=== PATIENT | male | born 1935 | race Caucasian/White ===

== ENCOUNTER → 2023-11-04 10:01 | Outpatient (REF) | payer OTHER, SELFPAY ==
[2023-11-04 10:46] LABS: % Basophils 0.2 % (0-2); % Eosinophils 0.8 % (0-6); % Immature Granulocytes 0.5 % (0-0.5); % Lymphocytes 30.4 % (20.5-51.1); % Neutrophils 59.1 % (42.2-75.2); Absolute Eosinophils 0.1 10^3/uL (0-0.7); Absolute Lymphocytes 1.9 10^3/uL (1.2-3.4); Absolute Monocytes 0.6 10^3/uL (0.1-0.6); Absolute Neutrophils 3.7 10^3/uL (1.4-6.5); Hematocrit 35.6 % (39.0-52.0); Hemoglobin 11.9 g/dL (13.0-18.0); Mean Corp Hgb Conc. 33.4 g/dL (33.0-37.0); Mean Corpuscular Hgb 31.6 pg (27.0-31.0); Mean Corpuscular Volume 94.7 fL (80.0-94.0); Mean Platelet Volume 11.2 fL (7.4-10.4); Nucleated Red Blood Cells % 0 % (-); Platelet Count 147 10^3/uL (130-400); Red Blood Cell Count 3.76 10^6/uL (4.70-6.10); Red Cell Dist. Width 12.9 % (11.5-14.5); White Blood Cell Count 6.3 10^3/uL (4.8-10.8)
[2023-11-04 11:05] LABS: ALT (SGPT) 14 U/L (0-50); AST (SGOT) 16 U/L (17-59); Albumin 4.2 g/dl (3.5-5.0); Alkaline Phosphatase 71 U/L (38-126); Blood Urea Nitrogen 12 mg/dl (9-20); Calcium 10.4 mg/dl (8.4-10.2); Carbon Dioxide 30 mmol/L (22-30); Chloride 100 mmol/L (98-107); Glucose 100 mg/dl (70-99); HDL Cholesterol 51 mg/dl; LDL Cholesterol, Calculated 55 mg/dl; Potassium 4.3 mmol/L (3.5-5.1); Sodium 138 mmol/L (135-145); Total Bilirubin 2.1 mg/dl (0.2-1.3); Total Cholesterol 117 mg/dl (50-199); Total Protein 6.9 g/dl (6.3-8.2); Triglyceride 56 mg/dl (10-149); Very Low Density Lipoprotein 11 mg/dl (0-30); eGFR > 60.00
[2023-11-04 11:20] LABS: Free T4 1.41 ng/dl (0.78-2.19)
[2023-11-04 11:34] LABS: TSH < 0.02 uIU/ml (0.47-4.68)
== END ==
LOC: OLABWIL 10:01
PROVIDERS: ATTENDING PHYSICIAN Family Medicine
DX: N18.32 Chronic kidney disease, stage 3b (principal); E78.2 Mixed hyperlipidemia; I10 Essential (primary) hypertension; I87.2 Venous insufficiency (chronic) (peripheral); R79.89 Other specified abnormal findings of blood chemistry
CPT/HCPCS: 36415; 80053; 80061; 84439; 84443; 85025

== ENCOUNTER → 2024-02-29 12:26 | Outpatient (REF) | payer OTHER, SELFPAY ==
[2024-02-29 14:03] LABS: ALT (SGPT) 18 U/L (0-50); AST (SGOT) 20 U/L (17-59); Albumin 4.5 g/dl (3.5-5.0); Alkaline Phosphatase 76 U/L (38-126); Blood Urea Nitrogen 13 mg/dl (9-20); Calcium 10.3 mg/dl (8.4-10.2); Carbon Dioxide 27 mmol/L (22-30); Chloride 102 mmol/L (98-107); Glucose 93 mg/dl (70-99); Potassium 4.4 mmol/L (3.5-5.1); Sodium 136 mmol/L (135-145); Total Bilirubin 1.9 mg/dl (0.2-1.3); Total Protein 7.2 g/dl (6.3-8.2); eGFR > 60.00
[2024-02-29 14:37] LABS: Free T3 3.75 pg/ml (2.77-5.27)
[2024-02-29 14:51] LABS: TSH Reflex To Free T4 < 0.02 uIU/ml (0.47-4.68)
[2024-02-29 15:28] LABS: Free T4 1.35 ng/dl (0.78-2.19)
[2024-03-03 02:21] LABS: Thyroid Stim. Immunoglobulin <0.10 IU/L (<=0.54)
[2024-03-03 05:23] LABS: TSH Receptor Antibody <1.10 IU/L (<=1.75)
== END ==
LOC: OLABWIL 12:26
PROVIDERS: ATTENDING PHYSICIAN Internal Medicine Endocrinology, Diabetes & Metabolism
DX: E05.90 Thyrotoxicosis, unspecified without thyrotoxic crisis or storm (principal)
CPT/HCPCS: 36415; 80053; 83520; 84439; 84443; 84445; 84481

== ENCOUNTER 2024-09-10 10:20 | Inpatient (IN) | payer OTHER, SELFPAY ==
[2024-09-09 17:22] VITALS: BP 136/66
[2024-09-09 17:57] LABS: % Basophils 0.1 % (0-2); % Immature Granulocytes 0.5 % (0-0.5); % Lymphocytes 10.1 % (20.5-51.1); % Monocytes 8.5 % (1.7-9.3); % Neutrophils 80.8 % (42.2-75.2); Absolute Immature Granulocytes 0.1 10^3/uL (0-0.05); Absolute Lymphocytes 1.2 10^3/uL (1.2-3.4); Absolute Neutrophils 9.4 10^3/uL (1.4-6.5); Hematocrit 35.6 % (39.0-52.0); Hemoglobin 12.1 g/dL (13.0-18.0); Mean Corpuscular Hgb 31.6 pg (27.0-31.0); Nucleated Red Blood Cells % 0 % (-); Platelet Count 153 10^3/uL (130-400); Red Blood Cell Count 3.83 10^6/uL (4.70-6.10); Red Cell Dist. Width 12.8 % (11.5-14.5); White Blood Cell Count 11.7 10^3/uL (4.8-10.8)
[2024-09-09 18:23] LABS: ALT (SGPT) 36 U/L (0-50); AST (SGOT) 73 U/L (17-59); Albumin 4.2 g/dl (3.5-5.0); Alkaline Phosphatase 92 U/L (38-126); Blood Urea Nitrogen 28 mg/dl (9-20); Calcium 10.5 mg/dl (8.4-10.2); Carbon Dioxide 23 mmol/L (22-30); Chloride 98 mmol/L (98-107); Glucose 111 mg/dl (70-99); Potassium 4.2 mmol/L (3.5-5.1); Sodium 130 mmol/L (135-145); Total Bilirubin 3.5 mg/dl (0.2-1.3); Total Protein 6.7 g/dl (6.3-8.2); eGFR > 60.00
[2024-09-09 20:24] VITALS: BP 111/61
[2024-09-09 20:36] VITALS: BP 111/61
[2024-09-09 21:00] VITALS: BP 127/58
[2024-09-09 22:00] VITALS: BP 121/60
[2024-09-09 23:38] VITALS: BP 119/71
--- NOTE | 2024-09-09 23:50 | ED.GENMED ---
History of Present Illness
General
Chief Complaint: Weakness
Time Seen by Provider: 09/09/24 22:29
History of Present Illness
History of Present Illness:
81-year-old male with history of CHF, COPD, hypertension presenting to the emergency department for generalized weakness and concern for dehydration. Patient arrives from independent living. He had been constipated, so took a lot of laxatives.
Last night he was up all night because he had to have multiple bowel movements. Today, he had a fall with positive head strike and reported some pain in his back. Daughters were concerned about his hydration status, so brought him to the hospital
for further evaluation. On arrival, patient reports feeling generally weak. He denies any loss of consciousness from the fall. Denies any blood in the stool. Denies chest pain, difficulty breathing, cough, fever. Believes that he overdid it
with the laxatives, took several. Denies additional acute medical complaints
Past History
Past History
ED Past Medical History: GERD, HTN, Hypercholesterolemia and Other (BPH)
ED Past Surgical History: Orthopedic (R TKA)
Social History
Tobacco: Smoker
Personal:
Living: with family
Phy Exam
Physical Exam
Physical Exam:
General: Well-appearing, no clinical signs of dehydration, nontoxic and in no acute distress
HEENT: protecting airway
Head: Small abrasion to the scalp.
Neck: appears supple
CV: Normal heart rate, irregular irregular rhythm
Resp: No accessory muscle use, no increased work of breathing, lungs clear to auscultation bilaterally
Abd: Soft and non-distended, no tenderness to palpation
Extremities: No deformities, no swelling, no erythema. Small area of bruising at at the right posterior rib region of the thoracic back. No crepitus
Neuro: alert, no focal neurologic deficit
: deferred
Rectal: no skin breakdown
Psych: Normal affect
Skin: Intact
Course
Orders/Labs/Results
Orders:
Orders
09/09/24 17:29
Electrocardiogram (*1) Urgent
Reason for Study: Abdominal Pain
EKG- Treatment ONCE
09/09/24 17:42
Complete Blood Count/With Diff Urgent
Comprehensive Metabolic Panel Urgent
09/09/24 22:56
CT Head W/o Iv Contrast Urgent
Comment:
Reason For Exam: fall, headstrike
CR Ribs-right 3 Vw W/pa Chest* Urgent
Comment:
Reason For Exam: fall
Abnormal Lab Results
09/09/24
17:42
WBC 11.7 H 10^3/uL
(4.8-10.8)
RBC 3.83 L 10^6/uL
(4.70-6.10)
Hgb 12.1 L g/dL
(13.0-18.0)
Hct 35.6 L %
(39.0-52.0)
MCH 31.6 H pg
(27.0-31.0)
MPV 11.0 H fL
(7.4-10.4)
Abs Immat Gran (auto) 0.1 H 10^3/uL
(0-0.05)
Absolute Neuts (auto) 9.4 H 10^3/uL
(1.4-6.5)
Absolute Monos (auto) 1.0 H 10^3/uL
(0.1-0.6)
Neutrophils % 80.8 H %
(42.2-75.2)
Lymphocytes % 10.1 L %
(20.5-51.1)
Sodium 130 L mmol/L
(135-145)
BUN 28 H mg/dl
(9-20)
Glucose 111 H mg/dl
(70-99)
Calcium 10.5 H mg/dl
(8.4-10.2)
Total Bilirubin 3.5 H mg/dl
(0.2-1.3)
AST 73 H U/L
(17-59)
09/09/24 17:42
09/09/24 17:42
Vital Signs
Initial and Last Documented VS:
Initial Vital Signs
Temp Pulse Resp BP Pulse Ox
98.1 F 82 20 136/66 97
09/09/24 17:22 09/09/24 17:22 09/09/24 17:22 09/09/24 17:22 09/09/24 17:22
Last Documented Vital Signs
Temp Pulse Resp BP Pulse Ox
98.1 F 64 19 119/71 99
09/09/24 17:22 09/09/24 23:38 09/09/24 23:00 09/09/24 23:38 09/09/24 23:38
MDM/Problems Addressed
MDM/Problems Addressed:
89-year-old male with history of CHF, COPD, hypertension presenting for concern of dehydration and generalized weakness. Vital signs on arrival are normal.
On exam, patient is resting comfortably, no acute distress or discomfort. On my assessment, watched patient ambulate from the bathroom to the bed, seemed unsteady, requiring assistance. Patient lives in an independent living facility. Patient
arrives with daughters, expressed concern for patient's fatigue and weakness. Suspect volume depletion, took multiple Lasix yesterday due to constipation and has had several bouts of diarrhea since. IV fluids started. In addition, patient is a
fall risk, had a fall today secondary to his symptoms. Does arrive with evidence of abrasion to the scalp and bruising to the right side of the ribs. Will obtain CT brain and x-ray imaging of the ribs. Patient had laboratory analysis prior to my
assessment, labs are unremarkable with the exception of mild hyponatremia, consistent with dehydration. Incidentally, patient found to be in A-fib, which is new for him. He is currently rate controlled.
23:50 - CT brain is negative. X-ray of the ribs without sign of rib fracture. In discussion with family, feel patient warrants admission for PT/OT consultation. Family is concerned about going back to an independent facility given his condition.
Patient has been declining over the past several months after his passed. Will plan for admission for continued cardiac monitoring, cardiac consultation with new onset A-fib, PT/OT consultation, social work consultation
*EKG
Interpreted by ED Provider?: Yes
EKG Intrepretation Date: 09/09/24
EKG Intrepretation Time: 23:58
Interpretation: abnormal
Comparison EKG: changes noted (01/17/21)
Heart Rate: 75
Rate: normal
Rhythm: a-fib
[place]: normal axis
QRS Pattern: normal QRS
Ischemia: no ischemia
*Critical Care Note
Total Time (30-74mins, 75-104mins- exclusive of procedures): Not Applicable
ED Attending Note
-
Portions of this chart may have been created with voice recognition software.� Occasional wrong word or��sound alike� substitutions may have occurred due to the inherent limitations of voice recognition software.
Discharge Plan
Departure
Prescriptions:
No Action
fluoxetine [Prozac] 40 MG capsule
40 mg PO DAILY
cyanocobalamin (vitamin B-12) 1,000 MCG tablet
1,000 mcg PO DAILY
aspirin 81 MG tablet,delayed release (DR/EC)
81 mg PO DAILY
simvastatin 40 MG tablet
40 mg PO DAILY
calcium carbonate [Oyster Shell Calcium 500] 500 MG tablet
500 mg PO DAILY
metoprolol succinate 25 MG tablet extended release 24 hr
25 mg PO DAILY
finasteride 5 MG tablet
5 mg PO DAILY
cholecalciferol (vitamin D3) 1,000 UNITS tablet
1,000 units PO DAILY
multivitamin with folic acid [Tab-A-Enrique] 1 TABLET tablet
1 tab PO DAILY
docusate sodium 100 MG capsule
100 mg PO BIDPRN PRN (Reason: hard stool) Qty: 20 0RF
pantoprazole 40 mg Tablet,Delayed Release (Dr/Ec)
40 mg PO DAILY
Referrals:
Anibal Weems MD [Family Provider] -
Interventions
Interventions:
*Risk Screen - Suicide Last Done: 09/09/24 17:22
*General Assessment Last Done: 09/09/24 17:22
*Neglect/Abuse Screening Last Done: 09/09/24 17:22
ED- Fall Risk Assessment Last Done: 09/09/24 22:54
*ED COVID-19 Vaccine History Last Done: 09/09/24 22:20
ED- Cardiac Assessment Last Done: 09/09/24 22:20
ED-Musculoskeletal Assessment Last Done: 09/09/24 21:38
ED- Neurological Assessment Last Done: 09/09/24 20:57
ED- Pulmonary Assessment Last Done: 09/09/24 21:38
ED-Skin Assessment Last Done: 09/09/24 22:20
Discharge Date and Time
Print Language: BURKINAN
[2024-09-10] VITALS (12 sets, daily range): BP systolic 101–155; BP diastolic 45–82; PULSE 58–71; O2SAT 97; BMI 29.9
--- NOTE | 2024-09-10 01:39 | HPS.HSE ---
Family Physician
-
Family Physician: Anibal Weems
Chief Complaint
-
Weakness with a fall
History of Present Illness
This is an 89-year-old male with past medical history significant for hypertension, GERD, COPD, BPH, hyperlipidemia presents to the emergency department following a fall at her independent living.
Patient was very sleepy at the time I saw him and history mostly obtained from chart records.
Patient apparently had constipation and took multiple doses of laxatives. Jyothi developed diarrhea thereafter. He had watery bowel movements throughout the day. And then today patient was weak fell and did strike his head and right back. He has
some back pain. He had small abrasion to the scalp and bruising to the posterior right rib. While was in the emergency department was found to be in atrial fibrillation that was rate controlled.
Daughter was concerned about his hydration status. On arrival in the emergency department he denied any loss of consciousness. He denies any bloody stool with diarrhea. He had no chest pain palpitations lightheadedness or dizziness. Denies any
cough fevers or chills.
In the emergency department he was afebrile, blood pressure was 124/50 with a pulse of 60 and respiratory rate of 15. He was satting 98% on room air. ECG showed atrial fibrillation with a rate of [address] or T wave changes. CBC was
unremarkable. Electrolytes notable for a sodium of 130 normal BUN/creatinine. Total bilirubin was slightly elevated at 3.5 with a AST of 75. Head CT is negative for any acute bleeds over the intracranial process. X-ray is negative for
infiltrates or rib fracture.
Medical History
Past Medical History
Past Medical History: Reports GERD, HTN, Hypercholesterolemia and Other (BPH)
Past Surgical History: Reports Orthopedic (Right TKA)
Social History
Tobacco: Smoker
Alcohol: Occasional
Drug: None
Personal:
Living: With Family
Employment: Retired
Family History
Family History: Not pertinent
Allergies / Home Medications
Allergies reflects when Allergies were last updated in [facility].
Home Medications with original date entered in [facility]
Allergy/Medication List:
Allergies
Allergy/AdvReac Type Severity Reaction Status Date / Time
No Known Allergies Allergy Unverified 02/23/21 17:13
Home Medications
aspirin 81 mg tablet,delayed release 81 mg PO DAILY 12/29/14
calcium carbonate (Oyster Shell Calcium 500) 500 mg PO DAILY 12/29/14
cholecalciferol (vitamin D3) 25 mcg (1,000 unit) tablet 1,000 units PO DAILY 12/29/14
cyanocobalamin (vitamin B-12) 1,000 mcg tablet 1,000 mcg PO DAILY 12/29/14
finasteride 5 mg tablet 5 mg PO DAILY 12/29/14
fluoxetine 40 mg capsule (Prozac) 40 mg PO DAILY 12/29/14
metoprolol succinate 25 mg tablet,extended release 24 hr 25 mg PO DAILY 12/29/14
multivitamin with folic acid 400 mcg tablet (Tab-A-Enrique) 1 tab PO DAILY 12/29/14
simvastatin 40 mg tablet 40 mg PO DAILY 12/29/14
docusate sodium 100 mg capsule 100 mg PO BIDPRN PRN hard stool #20 caps 02/23/21
pantoprazole 40 mg tablet,delayed release 40 mg PO DAILY 09/09/24
Review of Systems
-
History Source: Patient
Constitutional: Reports No Symptoms
EENT: Reports No Symptoms
Respiratory: Reports No Symptoms
Cardiac: Reports No Symptoms
Abdomen/GI: Reports Diarrhea
: Reports No Symptoms
Musculoskeletal: Reports No Symptoms
Skin: Reports No Symptoms
Endocrine: Reports No Symptoms
Hematologic/Lymphatic: Reports No Symptoms
Psych: Reports No Symptoms
Physical Exam
Vital Signs
Vital Signs
Temp Pulse Resp BP Pulse Ox
98.1 F 59 14 124/64 98
09/09/24 17:22 09/10/24 01:30 09/10/24 01:30 09/10/24 01:00 09/10/24 01:30
Physical Exam
General: Well Developed, Well Nourished and Comfortable
HEENT: NormoCephalic, Anicteric, Moist mucous membranes and Atraumatic
Respiratory: Clear
Cardiac: S1/S2 and Irregular Rhythm
Breast: Deferred by me
GI: Soft, Non Tender and Non Distended
Rectal: Deferred by Provider
Genito-urinary: Deferred by me
Musculoskeletal: No Clubbing, No Cyanosis and No Edema
Skin: Warm
Neuro: Alert, Oriented (to person and place) and Nonfocal/grossly intact
Hematologic/Lymphatic: No Lymphadenopathy
Psych: Calm
Laboratory Results
-
09/09/24 17:42
09/09/24 17:42
Laboratory Results
Total Bilirubin 3.5 mg/dl (0.2-1.3) H 09/09/24 17:42
AST 73 U/L (17-59) H 09/09/24 17:42
ALT 36 U/L (0-50) 09/09/24 17:42
Alkaline Phosphatase 92 U/L (38-126) 09/09/24 17:42
Data Reviewed
-
Diagnostic Radiology: Image Personally Visualized and interpreted
CT Scan: Report Reviewed by me
Medical Tests (Nuc Med, Echo, EKG etc): Image Personally Visualized and interpreted
Lab Data: Labs Reviewed by me
Old Records: Reviewed
Impression/Plan
-
IMPRESSION:
89-year-old who presents to the emergency department following a fall at home. Fall was in the setting of weakness following 1 day of laxative induced diarrhea. Had mild hyponatremia otherwise labs are unremarkable.
Mild elevation in total bilirubin and AST. Is ECG incidentally showed rate controlled atrial fibrillation at a rate of 75. No prior history of A-fib. Troponin is negative. Ambulated in the emergency department but required assistance.
PLAN:
Paroxysmal atrial fibrillation - New onset and incidental finding.
- admit to telemetry obs
- chads2 > 2 (age, htn chf), starting eliquis
- continue metoprolol 25 as rate is well controlled
- echo in am
- cardiology consult
Weakness/fall - In setting of diarrhea from laxatives. Mild dehydration.
- s/p I vluids in ED
- continue gentle hydration w/ NS at 75
- check orthostatics
- PT evaluation
Hyponatremia - Mild, suspect secondary to above
- IV NS for now
DVT PPX - SCDs for now
Code status - Full Code
[2024-09-10] MEDS: NSS 1000 IV ×2 (03:51→18:11)
[2024-09-10 07:11] LABS: Hematocrit 36.6 % (39.0-52.0); Hemoglobin 12.5 g/dL (13.0-18.0); Mean Corp Hgb Conc. 34.2 g/dL (33.0-37.0); Mean Corpuscular Hgb 31.6 pg (27.0-31.0); Mean Corpuscular Volume 92.7 fL (80.0-94.0); Mean Platelet Volume 11.2 fL (7.4-10.4); Platelet Count 142 10^3/uL (130-400); Red Blood Cell Count 3.95 10^6/uL (4.70-6.10); Red Cell Dist. Width 12.8 % (11.5-14.5); White Blood Cell Count 9.6 10^3/uL (4.8-10.8)
[2024-09-10 07:26] LABS: Blood Urea Nitrogen 22 mg/dl (9-20); Calcium 9.9 mg/dl (8.4-10.2); Carbon Dioxide 26 mmol/L (22-30); Chloride 101 mmol/L (98-107); Estimated Creatinine Clearance 75 ml/min; Glucose 94 mg/dl (70-99); Potassium 3.6 mmol/L (3.5-5.1); Sodium 134 mmol/L (135-145); eGFR > 60.00
[2024-09-10] MEDS: PROZAC 40 MG PO (09:05)
[2024-09-10] MEDS: TOPROL XL 25 MG PO (09:05)
[2024-09-10] MEDS: ASPIR LOW (ENTERIC COATED) 81 MG PO (09:05)
[2024-09-10] MEDS: PROTONIX 40 MG PO (09:06)
[2024-09-10] MEDS: PROSCAR 5 MG PO (09:06)
[2024-09-10] MEDS: LIPITOR 40 MG PO (09:06)
[2024-09-10] MEDS: ELIQUIS 5 MG PO ×2 (09:06→20:09)
--- NOTE | 2024-09-10 10:35 | CM ---
Patient with nursing. Patient lives in [facility] and his PCP is Dr. Weems. Patient was OBS and is now changed to INP status per physician. CM will return to complete assessment. CM will continue to follow for discharge
planning needs.
Plan; home with VN vs SNF pending therapy assessment; medical treatment plan
--- NOTE | 2024-09-10 11:34 | W.PN.HOSP.TC ---
Today's Communication/Plan
-
echo
ivf - pt/ot, orthostatics prior to dc
cards consulted
ensure no bleed on ct head
Assessment / Plan
Assessment / Plan
Physical Exam
General: Well Developed, Well Nourished and Comfortable
HEENT: NormoCephalic, Anicteric, Moist mucous membranes and Atraumatic
Respiratory: Clear
Cardiac: S1/S2 and Irregular Rhythm
Breast: Deferred by me
GI: Soft, Non Tender and Non Distended
Rectal: Deferred by Provider
Genito-urinary: Deferred by me
Musculoskeletal: No Clubbing, No Cyanosis and No Edema
Skin: Warm
Neuro: Alert, Oriented (to person and place) and Nonfocal/grossly intact
Hematologic/Lymphatic: No Lymphadenopathy
Psych: Calm
89-year-old who presents to the emergency department following a fall at home. Fall was in the setting of weakness following 1 day of laxative induced diarrhea. Had mild hyponatremia otherwise labs are unremarkable.
Mild elevation in total bilirubin and AST. Is ECG incidentally showed rate controlled atrial fibrillation at a rate of 75. No prior history of A-fib. Troponin is negative. Ambulated in the emergency department but required assistance.
PLAN:
Paroxysmal atrial fibrillation - New onset and incidental finding.
- admit to telemetry obs
- chads2 > 2 (age, htn chf), starting eliquis
- continue metoprolol 25 as rate is well controlled
- echo in am
- cardiology consult
Weakness/fall - In setting of diarrhea from laxatives. Mild dehydration.
-improved
- IVF
-orthostatics prior to dc
-symptomatic control
-at [facility], wants to go back
Hyponatremia - Mild, suspect secondary to above
- IV NS for now
-improving
-monitor
#HTN
#HLD
-cont asa, statin, bb
DVT PPX - Eliquis
Code status - Full Code
Anticipated Discharge: Within 24 hours
Subjective/Interval History
-
Date of Service: September 10, 2024
no acute events, diarrhea improved
Objective Data
-
Labs:
Laboratory Results
09/10/24
06:22
WBC 9.6
Hgb 12.5 L
Hct 36.6 L
Plt Count 142
Sodium 134 L
Potassium 3.6
Chloride 101
Carbon Dioxide 26
BUN 22 H
Creatinine 0.7
Glucose 94
Calcium 9.9
Vital Signs:
Vital Signs
Temp Pulse Resp BP Pulse Ox
97.8 F 65 18 101/74 99
09/10/24 07:35 09/10/24 07:35 09/10/24 07:35 09/10/24 07:35 09/10/24 07:35
I&O
09/09/24 09/10/24 09/11/24
06:59 06:59 06:59
Intake Total 120 / 120
Balance 120 / 120
Review of Systems
-
History Source: Patient
All other systems: Not reviewed unless documented
Data Reviewed
-
CT Scan: Report Reviewed by me
Labs: Labs Reviewed by me
--- NOTE | 2024-09-10 16:28 | CON.CAR ---
Consultation
Consultation Request
Date/Time Consultation Requested: 09/10/22
Date/Time Consultation Performed: 09/10/22
Requesting Provider: Dr Hansen
Performing Provider: Dr Chester
Reason for Consultation: AF
Medical History
-
Chief Complaint: fall
History of Present Illness:
89-year-old gentleman with past medical history of heart failure with preserved ejection fraction, left anterior fascicular block, hypertension who was followed by Dr. Montalvo but has not seen cardiology since 2020 presents for evaluation at the
recommendation of his daughters given a fall yesterday. He reports it was a loss of balance going from the rug to the tiling, he has never fallen before, but his daughters wanted him to be checked out. He has no chest pain or palpitations. He was
noted to be in atrial fibrillation. Currently, he has no palpitations chest pain or shortness of breath. He denies any weakness. Of note, review of the chart shows that his daughters were concerned about his hydration status after using laxatives
for constipation.
Past Medical History
Past Medical History: CHF (Preserved EF), COPD, GERD and HTN
Social History
Tobacco: Former Smoker (Recently quit per his report)
Alcohol: None
Personal: (Recently)
Living: Assisted Living ([facility])
Family History
Family History: Reviewed & Not Pertinent
Allergies / Home Medications
Allergy/AdvReac Type Severity Reaction Status Date / Time
No Known Allergies Allergy Unverified 02/23/21 17:13
�Medication �Instructions �Recorded �Confirmed �Type
aspirin 81 mg tablet,delayed 81 mg PO DAILY 12/29/14 09/09/24 History
release
calcium carbonate (Oyster Shell 500 mg PO DAILY 12/29/14 09/09/24 History
Calcium 500)
cholecalciferol (vitamin D3) 25 1,000 units PO DAILY 12/29/14 09/09/24 History
mcg (1,000 unit) tablet
cyanocobalamin (vitamin B-12) 1,000 mcg PO DAILY 12/29/14 09/09/24 History
1,000 mcg tablet
finasteride 5 mg tablet 5 mg PO DAILY 12/29/14 09/09/24 History
fluoxetine 40 mg capsule (Prozac) 40 mg PO DAILY 12/29/14 09/09/24 History
metoprolol succinate 25 mg 25 mg PO DAILY 12/29/14 09/09/24 History
tablet,extended release 24 hr
multivitamin with folic acid 400 1 tab PO DAILY 12/29/14 09/09/24 History
mcg tablet (Tab-A-Enrique)
simvastatin 40 mg tablet 40 mg PO DAILY 12/29/14 09/09/24 History
docusate sodium 100 mg capsule 100 mg PO BIDPRN PRN hard stool 02/23/21 09/09/24 Rx
#20 caps
pantoprazole 40 mg tablet,delayed 40 mg PO DAILY 09/09/24 09/09/24 History
release
Review of Systems
-
All other systems: Negative unless noted
Physical Exam
Vital Signs
Temp Pulse Resp BP Pulse Ox
97.3 F 66 18 127/70 100
09/10/24 15:40 09/10/24 15:40 09/10/24 15:40 09/10/24 15:40 09/10/24 15:40
Lab Results
09/10/24 06:22
09/10/24 06:22
Physical Exam
General: Well Developed, Well Nourished, No Apparent Distress and Comfortable
HEENT: Normocephalic
Respiratory: Clear; Negative Wheezes, Crackles or Rhonchi
Cardiac: Irregular Rhythm; Negative Murmur, Rub or Peripheral Edema
GI: Soft and Non Tender
Neuro: AO x 3
Impression / Plan
-
89-year-old gentleman with a past medical history of heart failure with preserved EF, hypertension and hyperlipidemia lost to follow-up since 2020 presented with a fall and found to be in atrial fibrillation.
Atrial fibrillation: This is a new diagnosis. He has no sense of the rhythm. We discussed the mainstay of therapy being anticoagulation.
He is rate controlled with metoprolol 25 mg daily.
He has been started on Eliquis given his CHADS2 Vasc[place] of 4 (heart failure, hypertension, age).
Otherwise, we discussed pursuing yazidism of normal rhythm. We do not know how long he has been in it as he is asymptomatic.
Given his age and goals of care to avoid intensive procedures, we will proceed with rate control unless he has a new cardiomyopathy on echocardiogram.
Heart failure with preserved EF: He reports this was an issue years ago but has not been in the last several years. He follows primarily with his PCP no longer in the cardiology office.
-currently euvolemic, NYHA 1. Can revisit GDMT at OP if becomes symptomatic
Right bundle branch block: New on EKG, echocardiogram ordered
Hypertension: Chronic and controlled continue current medications
Hyperlipidemia: Chronic and controlled continue statin.
Overall I recommend that he reestablish cardiovascular care.
Data:
Echocardiogram 07/05/2015, LVEF 60% mild LVH. Trace aortic regurgitation. No change from prior.
Data Reviewed
-
EKG: Tracing Personally Visualized and interpreted (Rate controlled atrial fibrillation with right bundle branch block.), Discussed with Physician (Discussed with Dr. Hansen, will continue rate control unless cmy. Check echo continue eliquis. )
and Other
Radiology: Other
[2024-09-11] VITALS (7 sets, daily range): BP systolic 146–160; BP diastolic 52–91; PULSE 66–85; O2SAT 98–100
[2024-09-11] MEDS: NSS 1000 IV (06:31)
[2024-09-11 07:25] LABS: Hematocrit 35.5 % (39.0-52.0); Hemoglobin 12.2 g/dL (13.0-18.0); Mean Corp Hgb Conc. 34.4 g/dL (33.0-37.0); Mean Corpuscular Volume 93.2 fL (80.0-94.0); Mean Platelet Volume 11.1 fL (7.4-10.4); Platelet Count 131 10^3/uL (130-400); Red Blood Cell Count 3.81 10^6/uL (4.70-6.10); Red Cell Dist. Width 12.9 % (11.5-14.5); White Blood Cell Count 6.3 10^3/uL (4.8-10.8)
[2024-09-11 07:33] LABS: ALT (SGPT) 47 U/L (0-50); AST (SGOT) 53 U/L (17-59); Albumin 3.3 g/dl (3.5-5.0); Alkaline Phosphatase 80 U/L (38-126); Blood Urea Nitrogen 14 mg/dl (9-20); Calcium 9.3 mg/dl (8.4-10.2); Carbon Dioxide 27 mmol/L (22-30); Chloride 105 mmol/L (98-107); Estimated Creatinine Clearance 75 ml/min; Glucose 92 mg/dl (70-99); Potassium 3.6 mmol/L (3.5-5.1); Sodium 135 mmol/L (135-145); Total Bilirubin 2.2 mg/dl (0.2-1.3); Total Protein 5.8 g/dl (6.3-8.2); eGFR > 60.00
[2024-09-11] MEDS: TOPROL XL 25 MG PO (08:52)
[2024-09-11] MEDS: PROZAC 40 MG PO (08:53)
[2024-09-11] MEDS: PROTONIX 40 MG PO (08:53)
[2024-09-11] MEDS: ELIQUIS 5 MG PO ×2 (08:53→20:16)
[2024-09-11] MEDS: PROSCAR 5 MG PO (08:53)
[2024-09-11] MEDS: LIPITOR 40 MG PO (08:53)
[2024-09-11] MEDS: ASPIR LOW (ENTERIC COATED) 81 MG PO (08:53)
--- NOTE | 2024-09-11 09:44 | CM ---
Addendum entered by Leslie Rodrigez 09/11/24 10:29:
Liaison able to accept patient when auth approved. CM will start auth.
Original Note:
Patient seen at bedside. Patient daughter is Samina Leon from [facility]. CM sent referral to [facility] and spoke with liaison who indicated that she would investigate ability to accept. CM updated physician and CM will continue to follow for discharge planning
needs.
Plan; SNF
--- NOTE | 2024-09-11 10:14 | W.PN.CD ---
Today's Communication / Plan
-
Echo pending
cont metop and Eliquis
He can likely be d/c after echo; we will schedule f/u appt.
Impression / Plan
-
89-year-old gentleman with a past medical history of heart failure with preserved EF, hypertension and hyperlipidemia lost to follow-up since 2020 presented with a fall and found to be in atrial fibrillation.
Atrial fibrillation: rate control for now
- cont metop
- cont Eliquis given his CHADS2 Vascor of 4 (heart failure, hypertension, age).
Heart failure with preserved EF: He reports this was an issue years ago but has not been in the last several years. He follows primarily with his PCP no longer in the cardiology office.
-currently euvolemic, NYHA 1. Can revisit GDMT at OP if becomes symptomatic
Right bundle branch block: New on EKG, echocardiogram ordered
Hypertension: Chronic and controlled continue current medications
Hyperlipidemia: Chronic and controlled continue statin.
Data:
Echocardiogram 07/05/2015, LVEF 60% mild LVH. Trace aortic regurgitation. No change from prior.
Subjective: feeling well would like to leave
Physical Exam
Vital Signs/Labs
Vital Signs
Temp Pulse Resp BP Pulse Ox
98.3 F 88 16 149/76 96
09/11/24 07:30 09/11/24 08:52 09/11/24 07:30 09/11/24 08:52 09/11/24 07:30
09/10/24 09/11/24 09/12/24
06:59 06:59 06:59
Actual Weight 208 lb 3 oz
09/11/24 05:50
09/11/24 05:50
Physical Exam
Constitutional: No acute distress and Comfortable
EENT: Anicteric
Cardiovascular: Pedal edema is absent and Rhythm/rate is irregular
Respiratory: Respiratory effort normal and Lungs clear to auscul.
GI: Soft
Neuro/Psych: AO x 3
Data Reviewed
-
Date of Service: September 11, 2024
EKG: Tracing Personally Visualized and interpreted (af)
Echo: Tracing Personally Visualized and interpreted and Report Reviewed by me
Labs: Labs Reviewed by me
--- NOTE | 2024-09-11 14:47 | CM ---
Case initiated in [facility] for skilled rehab at [facility].
Pended reference #[id number]
clinicals to be faxed to [phone]
Plan: skilled rehab, await insurance auth
--- NOTE | 2024-09-11 15:06 | W.PN.HOSP.TC ---
Today's Communication/Plan
-
d/c planning for snf rehab
Assessment / Plan
Assessment / Plan
89-year-old who presents to the emergency department following a fall at home. Fall was in the setting of weakness following 1 day of laxative induced diarrhea. Had mild hyponatremia otherwise labs are unremarkable.
Mild elevation in total bilirubin and AST. Is ECG incidentally showed rate controlled atrial fibrillation at a rate of 75. No prior history of A-fib. Troponin is negative. Ambulated in the emergency department but required assistance.
Paroxysmal atrial fibrillation - New onset and incidental finding.
- chads2 > 2 (age, htn chf), starting eliquis
- continue metoprolol 25 as rate is well controlled
- Echocardiogram showing preserved ejection fraction. Moderate mitral regurgitation. Mild to moderate tricuspid regurgitation. Pulm artery pressure of 49 mmHg.
- cardiology cleared patient for discharge.
Chronic diastolic congestive heart failure
-Currently euvolemic, patient to follow-up with cardiology in office.
Weakness/fall
-Suspected with volume depletion from laxative induced diarrhea
-Monitor orthostatic vitals
-Pending [facility] rehab placement
Hyponatremia-resolved
-Resolved with IVF
#HTN
#HLD
-cont asa, statin, bb
DVT PPX - Eliquis
Code status - Full Code
Anticipated Discharge: Within 24 hours
Subjective/Interval History
-
Date of Service: September 11, 2024
Resting comfortably in bed
Denies any chest discomfort or shortness of breath
Objective Data
-
Labs:
Laboratory Results
09/11/24
05:50
WBC 6.3
Hgb 12.2 L
Hct 35.5 L
Plt Count 131
Sodium 135
Potassium 3.6
Chloride 105
Carbon Dioxide 27
BUN 14
Creatinine 0.7
Glucose 92
Calcium 9.3
Total Bilirubin 2.2 H
AST 53
ALT 47
Alkaline Phosphatase 80
Vital Signs:
Vital Signs
Temp Pulse Resp BP Pulse Ox
97.3 F 76 18 152/78 95
09/11/24 11:14 09/11/24 11:14 09/11/24 11:14 09/11/24 11:14 09/11/24 11:14
I&O
09/10/24 09/11/24 09/12/24
06:59 06:59 06:59
Intake Total 120 / 120 1380 / 1380
Balance 120 / 120 1380 / 1380
Review of Systems
-
Respiratory: Reports No Symptoms
Cardiac: Reports No Symptoms
Abdomen/GI: Reports No Symptoms
Physical Exam
-
General: No Apparent Distress and Comfortable
HEENT: Negative Oxygen
Respiratory: Clear to Auscultation
Cardiac: Regular Rhythm and S1/S2; Negative Murmur or Rub
GI: Soft, Nontender, Nondistended and Normal Bowel Sounds
Musculoskeletal: No Edema
Neuro: Awake, Alert, Oriented, No Motor Deficits and Nonfocal/Grossly Intact
Psych: Calm
--- NOTE | 2024-09-11 18:17 | PTCARENOTE ---
Per MD pride the pt to Med surg.
[2024-09-12 07:30] LABS: Glucose - Point of Care 84 mg/dl (70-99)
[2024-09-12 07:35] VITALS: BP 158/86
[2024-09-12] MEDS: LIPITOR 40 MG PO (09:15)
[2024-09-12] MEDS: PROTONIX 40 MG PO (09:15)
[2024-09-12] MEDS: TOPROL XL 25 MG PO (09:16)
[2024-09-12] MEDS: ELIQUIS 5 MG PO (09:16)
[2024-09-12] MEDS: PROSCAR 5 MG PO (09:16)
[2024-09-12] MEDS: ASPIR LOW (ENTERIC COATED) 81 MG PO (09:16)
[2024-09-12] MEDS: PROZAC 40 MG PO (09:16)
--- NOTE | 2024-09-12 09:31 | W.PN.HOSP.TC ---
Today's Communication/Plan
-
D/c planning for snf rehab
medically clear
Assessment / Plan
Assessment / Plan
89-year-old who presents to the emergency department following a fall at home. Fall was in the setting of weakness following 1 day of laxative induced diarrhea. Had mild hyponatremia otherwise labs are unremarkable.
Mild elevation in total bilirubin and AST. Is ECG incidentally showed rate controlled atrial fibrillation at a rate of 75. No prior history of A-fib. Troponin is negative. Ambulated in the emergency department but required assistance.
Paroxysmal atrial fibrillation - New onset and incidental finding.
- chads2 > 2 (age, htn chf), starting eliquis
- continue metoprolol 25 as rate is well controlled
- Echocardiogram showing preserved ejection fraction. Moderate mitral regurgitation. Mild to moderate tricuspid regurgitation. Pulm artery pressure of 49 mmHg.
- cardiology cleared patient for discharge. to be discharged on eliquis , ASA discontinued .Continue toprol xl 25mg/d
- f/u with cardiology in office next month
Chronic diastolic congestive heart failure
-Currently euvolemic, patient to follow-up with cardiology in office.
Weakness/fall
-Suspected with volume depletion from laxative induced diarrhea
-Monitor orthostatic vitals
-Pending [facility] rehab placement
Hyponatremia-resolved
-Resolved with IVF
#HTN
#HLD
-cont asa, statin, bb
DVT PPX - Eliquis
Code status - Full Code
More than 30 minutes spent in discharge including
Final examination of the patient
Summarizing hospital stay
Instructions for continuing care to all relevant caregivers
Preparation of discharge records, prescriptions, and referral forms
Total time spent (in minutes): 38 mins
Anticipated Discharge: Today
Subjective/Interval History
-
Date of Service: September 12, 2024
no issues overnight
Objective Data
-
Vital Signs:
Vital Signs
Temp Pulse Resp BP Pulse Ox
97.9 F 100 20 158/86 98
09/12/24 07:35 09/12/24 09:16 09/12/24 07:35 09/12/24 09:16 09/12/24 07:35
I&O
09/11/24 09/12/24 09/13/24
06:59 06:59 06:59
Intake Total 1380 / 1380 600 / 600 120 / 120
Balance 1380 / 1380 600 / 600 120 / 120
Review of Systems
-
Respiratory: Reports No Symptoms
Cardiac: Reports No Symptoms
Abdomen/GI: Reports No Symptoms
Physical Exam
-
General: No Apparent Distress and Comfortable
HEENT: Negative Oxygen
Respiratory: Clear to Auscultation
Cardiac: S1/S2 and Irregular Rhythm; Negative Murmur, Rub or Tachycardic
GI: Soft, Nontender and Nondistended
Musculoskeletal: No Edema
Neuro: Awake, Alert, Oriented, No Motor Deficits and Nonfocal/Grossly Intact
Psych: Calm
--- NOTE | 2024-09-12 13:33 | CM ---
Availity for skilled rehab at [facility] started Pended reference #[id number].
Avavility checked x 2 still pending.
Spoke with Patricia at [facility] ready after auth
[facility]
report [phone]
fax [phone]
PLAN To [facility] after auth obtained
[2024-09-12 15:24] VITALS: BP 173/87
--- NOTE | 2024-09-12 15:33 | CM ---
Addendum entered by Gayatri Dewey RN 09/12/24 15:42:
Donnie Hidalgo notified of pt s auth number as below. Spoke with Jody gonzalez and pt [phone]. Family happy.Jody will transport pt to [facility].
MD DOCKERY aware.
Gwen
report [phone]
fax [phone]
PLAN To [facility]
Original Note:
TC from Dona/Gildardo
Approved skilled rehab
Auth# [id number]
start date 09/12/24, NRD 09/19/24
Updates to Dona at P# [phone] or fax# [phone]
--- NOTE | 2024-09-12 15:55 | W.DCSUMMARY ---
Discharge Summary
Discharge Data
Date of Admission: 09/10/24
Date of Discharge: 09/12/24
-
Pending Results: No
Hospital Course
Discharging Physician : Dr Warren Ibanez
Disposition : To home
Primary care physician : Dr Anibal Weems
Principal Discharge diagnosis :
Paroxysmal atrial fibrillation
Hypovolemic hyponatremia
Laxative induced diarrhea
Generalized weakness/fall
Chronic Discharge diagnosis :
Essential hypertension
Hyperlipidemia
Chronic diastolic congestive heart failure
Hospital Course :
Patient is 89-year-old male with above-mentioned past medical history came to ER after having mechanical fall at independent living. Patient was apparently dealing with constipation and took multiple doses of laxatives resulting in diarrhea.
Patient was suspected to be volume depleted causing resultant fall. Was brought into ER for further evaluation. Patient was noted to having mild hyponatremia and felt to be hypovolemic in nature, this resolved with IV fluid. patient incidentally
was noted to be in rate controlled A-fib which is a new finding for patient. Cardiology was involved in care who recommended for patient to be switched to Eliquis for anticoagulation with patient increased CHADS2 score. Echocardiogram showing
preserved ejection fraction with moderate MR/TR. Cardiology recommended for patient to follow-up in office within few weeks for further management of A-fib.
PT evaluated and patient was appropriate for rehab, patient was discharged to [facility] rehab after insurance approval.
Important imaging findings :
None
Procedure findings :
None
Discharge Plan
-
Patient Disposition: Half-Way/SNF
Discharge Diagnosis/Procedures: Afib - new diagnosis
Condition: Fair
Diet: 2 Gram Sodium
Activity: As tolerated
Driving Restrictions: No driving
Bathing Restrictions: OK to Shower
Referrals:
Stephanie Prado CRNP [Specified Professional Personl] - 10/02/24 1:00 pm
Anibal Weems MD [Family Provider] - in one week
Prescriptions:
New
Eliquis 5 mg Tablet
5 mg PO BID Qty: 60 2RF
Continued
fluoxetine [Prozac] 40 MG capsule
40 mg PO DAILY
cyanocobalamin (vitamin B-12) 1,000 MCG tablet
1,000 mcg PO DAILY
simvastatin 40 MG tablet
40 mg PO DAILY
calcium carbonate [Oyster Shell Calcium 500] 500 MG tablet
500 mg PO DAILY
metoprolol succinate 25 MG tablet extended release 24 hr
25 mg PO DAILY
finasteride 5 MG tablet
5 mg PO DAILY
cholecalciferol (vitamin D3) 1,000 UNITS tablet
1,000 units PO DAILY
multivitamin with folic acid [Tab-A-Enrique] 1 TABLET tablet
1 tab PO DAILY
docusate sodium 100 MG capsule
100 mg PO BIDPRN PRN (Reason: hard stool) Qty: 20 0RF
pantoprazole 40 mg Tablet,Delayed Release (Dr/Ec)
40 mg PO DAILY
Discontinued
aspirin 81 MG tablet,delayed release (DR/EC)
81 mg PO DAILY
Discharge Orders:
Discharge Patient (As Directed); Ordered 09/12/24
Ordered By: Warren Ibanez
Discharge Date and Time
Print Language: TRINIDADIAN
== END 2024-09-12 17:28 | DRG 394 ==
LOC: 4 EAST ACU 10:20
PROVIDERS: Emergency Medicine; Internal Medicine; ADMITTING PHYSICIAN Internal Medicine; ATTENDING PHYSICIAN Hospitalist; CONSULT PHYSICIAN Internal Medicine Cardiovascular Disease; EMERGENCY PHYSICIAN Student in an Organized Health Care Education/Training Program; FAMILY PHYSICIAN Internal Medicine Geriatric Medicine
DX: K52.1 Toxic gastroenteritis and colitis (principal); E87.1 Hypo-osmolality and hyponatremia; I50.32 Chronic diastolic (congestive) heart failure; T47.4X5A Adverse effect of other laxatives, initial encounter; E86.0 Dehydration; I48.0 Paroxysmal atrial fibrillation; S00.01XA Abrasion of scalp, initial encounter; S20.20XA Contusion of thorax, unspecified, initial encounter; E78.00 Pure hypercholesterolemia, unspecified; K21.9 Gastro-esophageal reflux disease without esophagitis; J44.9 Chronic obstructive pulmonary disease, unspecified; N40.0 Benign prostatic hyperplasia without lower urinary tract symptoms; I45.10 Unspecified right bundle-branch block; I11.0 Hypertensive heart disease with heart failure; E86.1 Hypovolemia; Z87.891 Personal history of nicotine dependence; Z96.651 Presence of right artificial knee joint; Z79.82 Long term (current) use of aspirin; Z79.899 Other long term (current) drug therapy; W01.10XA Fall on same level from slipping, tripping and stumbling with subsequent striking against unspecified object, initial encounter
CPT/HCPCS: 70450; 71101; 80048; 80053; 82962; 85025; 85027; 87070; 93005; 93306; 97116; 97163; 97166; 99285

== ENCOUNTER → 2024-09-14 11:36 | Outpatient (REF) | payer OTHER, SELFPAY ==
[2024-09-14 12:53] LABS: Hematocrit 39.5 % (39.0-52.0); Hemoglobin 12.9 g/dL (13.0-18.0); Mean Corp Hgb Conc. 32.7 g/dL (33.0-37.0); Mean Corpuscular Hgb 31.4 pg (27.0-31.0); Mean Corpuscular Volume 96.1 fL (80.0-94.0); Mean Platelet Volume 11.1 fL (7.4-10.4); Platelet Count 152 10^3/uL (130-400); Red Blood Cell Count 4.11 10^6/uL (4.70-6.10); White Blood Cell Count 6.1 10^3/uL (4.8-10.8)
[2024-09-14 13:12] LABS: Blood Urea Nitrogen 15 mg/dl (9-20); Carbon Dioxide 31 mmol/L (22-30); Chloride 97 mmol/L (98-107); Glucose 101 mg/dl (70-99); Magnesium 1.9 mg/dl (1.6-2.3); Potassium 4.1 mmol/L (3.5-5.1); Sodium 136 mmol/L (135-145); eGFR > 60.00
== END ==
LOC: OLABN 11:36
PROVIDERS: ATTENDING PHYSICIAN Student in an Organized Health Care Education/Training Program
DX: I10 Essential (primary) hypertension (principal)
CPT/HCPCS: 36415; 80048; 83735; 85027

== ENCOUNTER → 2024-10-17 13:12 | Outpatient (REF) | payer OTHER, SELFPAY ==
[2024-10-17 14:20] LABS: ALT (SGPT) 19 U/L (0-50); AST (SGOT) 17 U/L (17-59); Albumin 3.8 g/dl (3.5-5.0); Alkaline Phosphatase 74 U/L (38-126); Blood Urea Nitrogen 9 mg/dl (9-20); Calcium 10.2 mg/dl (8.4-10.2); Carbon Dioxide 26 mmol/L (22-30); Chloride 104 mmol/L (98-107); Glucose 94 mg/dl (70-99); Potassium 3.8 mmol/L (3.5-5.1); Sodium 137 mmol/L (135-145); Total Bilirubin 1.6 mg/dl (0.2-1.3); eGFR > 60.00
[2024-10-17 14:31] LABS: % Basophils 0.2 % (0-2); % Eosinophils 1.1 % (0-6); % Immature Granulocytes 0.4 % (0-0.5); % Lymphocytes 38.3 % (20.5-51.1); % Monocytes 8.5 % (1.7-9.3); % Neutrophils 51.5 % (42.2-75.2); Absolute Eosinophils 0.1 10^3/uL (0-0.7); Absolute Lymphocytes 1.8 10^3/uL (1.2-3.4); Absolute Monocytes 0.4 10^3/uL (0.1-0.6); Absolute Neutrophils 2.4 10^3/uL (1.4-6.5); Hematocrit 35.2 % (39.0-52.0); Hemoglobin 11.3 g/dL (13.0-18.0); Mean Corp Hgb Conc. 32.1 g/dL (33.0-37.0); Mean Corpuscular Hgb 31.2 pg (27.0-31.0); Mean Corpuscular Volume 97.2 fL (80.0-94.0); Mean Platelet Volume 11.6 fL (7.4-10.4); Nucleated Red Blood Cells % 0 % (-); Platelet Count 133 10^3/uL (130-400); Red Blood Cell Count 3.62 10^6/uL (4.70-6.10); Red Cell Dist. Width 13.3 % (11.5-14.5); White Blood Cell Count 4.6 10^3/uL (4.8-10.8)
[2024-10-18 10:57] LABS: Iron 62 ug/dl (49-181)
[2024-10-18 11:06] LABS: Percent Saturation 22 % (20-50); Total Iron Binding Capacity 279 ug/dl (261-462)
[2024-10-18 11:56] LABS: Ferritin 68.7 ng/ml (17.9-464.0)
== END ==
LOC: OLABWPC 13:12
PROVIDERS: ATTENDING PHYSICIAN Family Medicine
DX: I10 Essential (primary) hypertension (principal); D68.59 Other primary thrombophilia
CPT/HCPCS: 36415; 80053; 82728; 83540; 83550; 85025

== ENCOUNTER → 2024-10-27 10:26 | Outpatient (REF) | payer OTHER, SELFPAY ==
[2024-10-27 11:40] LABS: ALT (SGPT) 14 U/L (0-50); AST (SGOT) 14 U/L (17-59); Albumin 3.5 g/dl (3.5-5.0); Alkaline Phosphatase 70 U/L (38-126); Blood Urea Nitrogen 7 mg/dl (9-20); Calcium 10.2 mg/dl (8.4-10.2); Carbon Dioxide 29 mmol/L (22-30); Chloride 103 mmol/L (98-107); Glucose 95 mg/dl (70-99); Sodium 139 mmol/L (135-145); Total Bilirubin 1.5 mg/dl (0.2-1.3); Total Protein 5.9 g/dl (6.3-8.2); eGFR > 60.00
[2024-10-27 11:49] LABS: % Basophils 0.2 % (0-2); % Eosinophils 0.8 % (0-6); % Immature Granulocytes 0.4 % (0-0.5); % Lymphocytes 41.5 % (20.5-51.1); % Monocytes 10.5 % (1.7-9.3); % Neutrophils 46.6 % (42.2-75.2); Absolute Monocytes 0.5 10^3/uL (0.1-0.6); Absolute Neutrophils 2.3 10^3/uL (1.4-6.5); Hematocrit 34.3 % (39.0-52.0); Hemoglobin 11.4 g/dL (13.0-18.0); Mean Corp Hgb Conc. 33.2 g/dL (33.0-37.0); Mean Corpuscular Hgb 31.9 pg (27.0-31.0); Mean Corpuscular Volume 96.1 fL (80.0-94.0); Mean Platelet Volume 11.2 fL (7.4-10.4); Nucleated Red Blood Cells % 0 % (-); Platelet Count 128 10^3/uL (130-400); Red Blood Cell Count 3.57 10^6/uL (4.70-6.10); White Blood Cell Count 4.9 10^3/uL (4.8-10.8)
== END ==
LOC: OLABWPC 10:26
PROVIDERS: ATTENDING PHYSICIAN Family Medicine
DX: I48.0 Paroxysmal atrial fibrillation (principal)
CPT/HCPCS: 36415; 80053; 85025

== ENCOUNTER → 2025-01-29 10:15 | Outpatient (REF) | payer OTHER, SELFPAY ==
[2025-01-29 11:03] LABS: Hematocrit 37.0 % (39.0-52.0); Hemoglobin 12.2 g/dL (13.0-18.0); Mean Corp Hgb Conc. 33.0 g/dL (33.0-37.0); Mean Corpuscular Volume 94.4 fL (80.0-94.0); Nucleated Red Blood Cells % 0 % (-); Platelet Count 136 10^3/uL (130-400); Red Cell Dist. Width 13.0 % (11.5-14.5)
[2025-01-29 11:34] LABS: ALT (SGPT) 20 U/L (0-50); AST (SGOT) 22 U/L (17-59); Albumin 3.8 g/dl (3.5-5.0); Blood Urea Nitrogen 11 mg/dl (9-20); Calcium 10.1 mg/dl (8.4-10.2); Carbon Dioxide 26 mmol/L (22-30); Chloride 106 mmol/L (98-107); Glucose 94 mg/dl (70-99); Potassium 4.2 mmol/L (3.5-5.1); Sodium 136 mmol/L (135-145); Total Protein 6.4 g/dl (6.3-8.2); eGFR > 60.00
[2025-01-29 11:45] LABS: Alkaline Phosphatase 70 U/L (38-126)
== END ==
LOC: OLABWHC 10:15
PROVIDERS: ATTENDING PHYSICIAN Family Medicine
DX: I48.0 Paroxysmal atrial fibrillation (principal)
CPT/HCPCS: 36415; 80053; 85025

== ENCOUNTER → 2025-02-26 09:53 | Outpatient (REF) | payer OTHER, SELFPAY ==
[2025-02-26 12:18] LABS: Hematocrit 38.4 % (39.0-52.0); Hemoglobin 13.0 g/dL (13.0-18.0); Mean Corp Hgb Conc. 33.9 g/dL (33.0-37.0); Mean Corpuscular Volume 92.8 fL (80.0-94.0); Nucleated Red Blood Cells % 0 % (-); Platelet Count 157 10^3/uL (130-400); Red Cell Dist. Width 13.2 % (11.5-14.5)
[2025-02-26 13:00] LABS: TSH < 0.02 uIU/ml (0.47-4.68)
== END ==
LOC: OLABWIL 09:53
PROVIDERS: ATTENDING PHYSICIAN Family Medicine
DX: R79.81 Abnormal blood-gas level (principal)
CPT/HCPCS: 36415; 84439; 84443; 85025

== ENCOUNTER → 2025-03-07 15:21 | Outpatient (REF) | payer OTHER, SELFPAY | LOC: RAD 15:21 | PROVIDERS: ATTENDING PHYSICIAN Family Medicine | DX: R94.6 Abnormal results of thyroid function studies (principal); E05.90 Thyrotoxicosis, unspecified without thyrotoxic crisis or storm | CPT/HCPCS: 76536 ==

== ENCOUNTER → 2025-03-20 11:56 | Outpatient (REF) | payer OTHER, SELFPAY ==
[2025-03-20 15:08] LABS: Urine Character Clear (Clear)
[2025-03-20 15:40] LABS: Urine Squamous Cell 0-2 /LPF (Few)
== END ==
LOC: OLABWPC 11:56
PROVIDERS: ATTENDING PHYSICIAN Family Medicine
DX: R30.0 Dysuria (principal)
CPT/HCPCS: 81003; 81015; 87086